=== PATIENT | female | born 1975 | race Caucasian/White ===

== ENCOUNTER 2017-10-15 23:05 | Day surgery (SDC) | payer OTHER ==
[2017-10-15 23:40] VITALS: BMI 29.5
[2017-10-16] MEDS ORDERED: NIFEdipine 10 MG CAP PO SCH ×2 (01:45→02:15)
[2017-10-16] MEDS ORDERED: NIFEdipine 10 MG CAP PO PRN (06:00)
--- NOTE | 2017-10-16 07:11 | PRG ---
DATE OF SERVICE: 10/16/2017 TIME OF SERVICE: 0300 PRESENTING COMPLAINT: Contractions at 36 weeks gestation. HISTORY OF PRESENT ILLNESS: Ms. Calderon is a 42-year-old 3, para 1 with an FER of 11/11/2017. She underwent assisted reproductive technology IVF for this . She sees Dr. Arroyo. She re ports contractions over the past 12-15 hours q.3 minutes. She denies rupture of membranes. She repo rts an active fetus. She denies vaginal bleeding. OB AND [employer] HISTORY: x1 in 2004. SAB x2, EDC of 11/11/2017. Blood type O positive, antibody neg ative, Pap negative, rubella immune, VDRL nonreactive, hepatitis B, GC chlamydia negative. PAST MEDICAL HISTORY: None. PAST SURGICAL HISTORY: D&C and HSG. ALLERGIES: None. MEDICATIONS: vitamins and baby aspirin. SOCIAL HISTORY: Denies tobacco, alcohol, IV drug abuse. FAMILY HISTORY/REVIEW OF SYSTEMS: Noncontributory. PHYSICAL EXAMINATION: GENERAL: White female, comfortable, in no acute distress. VITAL SIGNS: Temperature 98.6, respirations 18, pulse 89, blood pressure 110/72. HEENT: Within normal limits. LUNGS: Clear to auscultation bilaterally. HEART: Regular rate and rhythm. ABDOMEN: Soft with palpable indentable contractions. Fundal height of 35. FHTs 140s. PELVIC: Vulva without lesions. Vagina without discharge. Cervix by nurse exam was 1, long, and hig h, cephalic. EXTREMITIES: Without clubbing, cyanosis or edema. SUMMARY OF HOSPITAL CARE: The patient was having contractions q.3 minutes. However, over approximat aliica 4 hours she did not have any cervical change. Her contractions did not resolve with p.o. and IV hydration. She received 1 dose of Procardia and contractions spaced out to approximately q.8-10 baldo darwin. She was discharged home and will be keeping close follow up with Dr. Mode Arroyo at [facility].
== END 2017-10-16 04:15 | disposition home or self-care (01) ==
LOC: L&D/OP 23:05
PROVIDERS: ATTEND Obstetrics & Gynecology
DX: O60.03 Preterm labor without delivery, third trimester (principal); Z3A.36 36 weeks gestation of pregnancy; Z79.82 Long term (current) use of aspirin
CPT/HCPCS: 96360; 96361; 99283

== ENCOUNTER 2017-10-26 16:26 | Inpatient (IN) | payer OTHER ==
[2017-10-26] MEDS ORDERED: Docusate 100 MG CAP PO PRN (16:37)
[2017-10-26] MEDS ORDERED: Promethazine HCl 25 MG/ML VIAL IM PRN (16:37)
[2017-10-26] MEDS ORDERED: Ibuprofen 800 MG TAB PO PRN (16:37)
[2017-10-26] MEDS ORDERED: Misoprostol 200 MCG TAB PR PRN (16:37)
[2017-10-26] MEDS ORDERED: Acetaminophen 500 MG TAB PO PRN (16:37)
[2017-10-26] MEDS ORDERED: NS / Oxytocin 40 units/1000ml 1,000 ML IV PRN (16:37)
[2017-10-26] MEDS ORDERED: HYDROcodone/Acetaminophen 5/325 mg Tablet PO PRN ×2 (16:37)
[2017-10-26] MEDS ORDERED: Diphenoxylate HCl/Atropine Tablet PO PRN ×2 (16:37)
[2017-10-26] MEDS ORDERED: Zolpidem Tartrate 5 MG TAB PO PRN (16:37)
[2017-10-26] MEDS ORDERED: Butorphanol Tartrate 1 MG/ML VIAL SLOW IVP PRN (16:37)
[2017-10-26] MEDS ORDERED: Lidocaine 1% (PF) 30 ML VIAL SC PRN (16:37)
[2017-10-26] MEDS ORDERED: Dinoprostone 10 MG Suppository VAG SCH (17:00)
[2017-10-26] MEDS: Lactated Ringer's 1,000 ML IV SCH (17:47)
[2017-10-26 18:09] LABS: Mean Corpuscular HGB CONC 34.1 g/dL (32.0-36.0); Mean Corpuscular Hemoglobin 31.8 pg (27.0-31.0); Mean Corpuscular Volume 93.3 fl (81.0-99.0); Mean Platelet Volume 9.3 fL (7.4-10.4); Platelet Count 173 thou/uL (130-400); RBC Distribution Width 12.4 % (11.5-14.5); Red Blood Cell (RBC) Count 3.15 mill/uL (4.20-5.40); White Blood Cell (WBC) Count 10.7 thou/uL (4.8-10.8)
[2017-10-26 18:57] LABS: Syphilis Antibody Nonreactive (Nonreactive); Syphilis Antibody Index 0.03 S/CO (<1.00 Non-Reactive)
[2017-10-26 18:58] LABS: HBSAg Index 0.54 S/CO (0-0.99); Hep B Surf Ag Non-Reactive S/CO (NonReactive)
[2017-10-27] MEDS: Lactated Ringer's 1,000 ML IV SCH ×5 (00:40→23:51)
[2017-10-27] MEDS ORDERED: NS w/ Oxytocin 10 units 500 ML ONE (07:08)
[2017-10-27] MEDS ORDERED: LR 500 ML/Oxytocin 10 units 500 ML IV SCH (07:15)
[2017-10-27] MEDS ORDERED: DISCONTINUE ALL PREVIOUS NARCOTICS FS SCH (07:30)
[2017-10-27] MEDS ORDERED: Lidocaine 1% (PF) 30 ML VIAL ONE (07:36)
[2017-10-27] MEDS: Bupivacaine 0.5% 20 ML, fentaNYL Citrate/PF 400 MCG in Sodium Chloride 0.9% 72 ML EPIDURAL SCH ×2 (09:25→15:48)
[2017-10-27] MEDS: Ondansetron HCl/PF 4 MG/2 ML Vial IVP PRN ×3 (11:28→23:17)
[2017-10-27] MEDS ORDERED: Acetaminophen 325 MG TAB PO PRN (13:38)
[2017-10-27] MEDS ORDERED: Lactated Ringer's 500 ML IV PRN (13:38)
[2017-10-27] MEDS ORDERED: Promethazine HCl 25 MG/ML VIAL IM PRN (13:38)
[2017-10-27] MEDS ORDERED: ePHEDrine/0.9% NaCl/PF SYRINGE 50 mg/10 ml SLOW IVP PRN (13:38)
[2017-10-27] MEDS ORDERED: Eucerin (Mineral Oil/Petrolatum,White) 30 gm Jar TOP PRN (13:38)
[2017-10-27] MEDS ORDERED: Naloxone HCl 0.4 mg/ml Vial IVP PRN ×2 (13:38)
[2017-10-27] MEDS ORDERED: Ondansetron HCl/PF 4 MG/2 ML Vial IVP PRN (13:38)
[2017-10-27] MEDS ORDERED: diphenhydrAMINE 50 MG/ML VIAL IVP PRN (13:38)
[2017-10-27] MEDS ORDERED: Fentanyl 4mcg/Marcaine 0.1% Cassette 100 ML EPIDURAL SCH (13:45)
[2017-10-27] MEDS ORDERED: Communication Order-Pharmacy FS SCH (13:45)
[2017-10-27] MEDS ORDERED: Ampicillin/Sulbactam 3 GM in Sodium Chloride 0.9% 100 ML IVPB SCH (22:15)
[2017-10-28] MEDS: NS / Oxytocin 40 units/1000ml 1,000 ML IV SCH ×2 (00:30→01:42)
[2017-10-28] MEDS ORDERED: Zolpidem Tartrate 5 MG TAB PO PRN (00:47)
[2017-10-28] MEDS ORDERED: Bisacodyl 10 MG SUPP PR PRN (00:47)
[2017-10-28] MEDS ORDERED: Lanolin Ointment 7 GM TUBE TOP PRN (00:47)
[2017-10-28] MEDS ORDERED: Acetaminophen/Codeine 30-300mg Tablet PO PRN ×2 (00:47)
[2017-10-28] MEDS ORDERED: Milk Of Magnesia 30 ML UDCUP PO PRN (00:47)
[2017-10-28] MEDS ORDERED: Benzocaine/Menthol 20-0.5% 60 ML CAN TOP PRN (00:47)
[2017-10-28] MEDS ORDERED: diphenhydrAMINE 25 MG CAP PO PRN (00:47)
[2017-10-28] MEDS ORDERED: Preparation H Ointment 28 GM TUBE PR PRN (00:47)
[2017-10-28] MEDS ORDERED: Ondansetron HCl/PF 4 MG/2 ML Vial IVP PRN (00:47)
[2017-10-28] MEDS ORDERED: Bupivacaine 0.25% HCL 30 ML VIAL ONE (01:00)
[2017-10-28] MEDS ORDERED: Adacel (T-DAP) 0.5 ML VIAL IM ONE (02:00)
[2017-10-28] MEDS ORDERED: Ampicillin/Sulbactam 3 GM in Sodium Chloride 0.9% 100 ML IVPB SCH (04:00)
[2017-10-28] MEDS: Ibuprofen 800 MG TAB PO SCH ×3 (06:34→21:23)
[2017-10-28] MEDS: Ampicillin/Sulbactam 3 GM in Sodium Chloride 0.9% 100 ML IVPB SCH ×2 (06:35→14:00)
[2017-10-28] MEDS: Ferrous Sulfate 325 MG TAB PO SCH ×2 (10:26→18:30)
[2017-10-28] MEDS: Prenatal Vitamin 1 TAB PO SCH (10:26)
[2017-10-28] MEDS: Docusate Calcium (SURFAK) 240 MG CAP PO SCH ×2 (10:26→21:23)
[2017-10-28] MEDS ORDERED: Sodium Chloride 0.9% 10 ML ONE (13:58)
[2017-10-29] MEDS: Ibuprofen 800 MG TAB PO SCH ×2 (06:10→14:13)
[2017-10-29] MEDS: Ferrous Sulfate 325 MG TAB PO SCH ×2 (09:19→17:09)
[2017-10-29] MEDS: Docusate Calcium (SURFAK) 240 MG CAP PO SCH (09:19)
[2017-10-29] MEDS: Prenatal Vitamin 1 TAB PO SCH (09:19)
[2017-10-29 11:40] VITALS: BMI 29.5
[2017-10-29 20:37] VITALS: BP 120/64; TEMP 98.2
== END 2017-10-29 21:10 | disposition home or self-care (01) | DRG 775 ==
LOC: L&D 16:26 → 3SW 10-28 02:53
PROVIDERS: ADMIT Obstetrics & Gynecology; ATTEND Obstetrics & Gynecology
PROC: 10E0XZZ Delivery of Products of Conception, External Approach (ICD-10-PCS; principal; 2017-10-26)
PROC: 3E033VJ Introduction of Other Hormone into Peripheral Vein, Percutaneous Approach (ICD-10-PCS; 2017-10-26)
DX: O41.03X0 Oligohydramnios, third trimester, not applicable or unspecified (principal); Z37.0 Single live birth; Z3A.38 38 weeks gestation of pregnancy; O76 Abnormality in fetal heart rate and rhythm complicating labor and delivery
CPT/HCPCS: 51702; 85027; 86780; 86850; 86900; 86901; 87340; A4216; J0295; J2001; J2405; J3010; J3490; J7050; S0020